=== PATIENT | female | born 1970 | race Caucasian/White ===

== ENCOUNTER → 2017-11-28 | Day surgery (SDC) | payer OTHER ==
--- NOTE | 2017-11-24 19:39 | GHP ---
[f rep st] PREOP HISTORY AND PHYSICAL DATE OF ADMISSION: 11/28/2017 PLANNED PROCEDURE: Hysteroscopy with morcellation of endometrium and an endometrial ablation. INDICATIONS: Patient is a 47-year-old 2, para 2-0-0-2, whose periods have been getting progr essively worse over the last year. The patient had a Mirena placed 4-1/2 years ago. She had sporadi c cycles for the majority of the time with the Mirena, but over the last 6 months, her bleeding has b ecome monthly and longer lasting 6-12 days. She was seen for her annual exam at the end of August, and had her Mirena IUD removed, and we discussed management options including expectant management wi th the removal of the IUD which patient opted for. Patient states after her IUD was removed, she is having 2 periods a month, lasting 9 days that are very cramping. The patient previously did okay on control pills but would have to avoid being on hormones in the future. A pelvic ultrasound was obtained which showed a uterus measuring 9 x 5 x 6 cm with an endometrial thickness of 0.33 cm. How ever, there is a posterior intramural fibroid measuring 4 x 5 cm, which does not appear to impinge on the endometrial cavity, but we cannot rule out impingement of the endometrial cavity. We had a long discussion about management options of replacing an IUD, proceeding with control pills, hyster oscopy, and morcellation of endometrial tissue plus or minus endometrial ablation versus hysterectomy . Patient is not ready for hysterectomy. We extensively reviewed the images from the ultrasound and showed that the fibroid appears to be through most of the wall of the uterus. We discussed that if it is distorting the uterine cavity we might not be able to perform the endometrial ablation or it mi ght not be successful and removing the fibroid hysteroscopically would result in perforating the uter us, and would not be a great idea. Patient would like to attempt to proceed with a hysteroscopy, mor cellation of endometrial tissue, and an endometrial ablation, and is aware that if it is not successf ul or we are not able to safely perform the procedure, that we will not do the ablation and will have to talk about other options. Risks and benefits have been extensively reviewed with the patient, an d the patient has been properly consented. MEDICAL HISTORY: Menorrhagia. History of cervical dysplasia. MEDICATIONS: None. SURGICAL HISTORY: section, breast biopsy, some teeth extractions. ALLERGIES: Penicillin. SOCIAL HISTORY: The patient is dating. 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 She denies tobacco or drug use. She does drink 7 alcoholic beverages a week. FAMILY MEDICAL HISTORY: Noncontributory. 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 Periods currently have been every 15 days lasting 9 days of bleedi ng with cramping. She is a 2, para 2-0-0-2. In 1999, she had a spontaneous vaginal delivery of a 6 pounds 3 ounces at 36 weeks' gestation. In 2001 she had a primary low transverse cesa rean section for arrest of descent of an 8 pounds 13 ounces male infant. The patient does have a his tory of abnormal Pap smears. She had a colposcopy and not sure what was done after that. Her repeat Pap smear in 2015 and HPV testing were both negative. Pelvic ultrasound was described above. She d oes have a history of HPV in the past. REVIEW OF SYSTEMS: 10-point review of systems is negative with exception of the above-mentioned pert inent positives. PHYSICAL EXAM: VITAL SIGNS: Patient's blood pressure is 98/60. Her weight is 143. GENERAL APPEARA NCE: Alert and oriented x3. PSYCH: Appropriate affect. HEART: Rate is regularly irregular. LUNG S: Clear to auscultation bilaterally. ABDOMEN: Soft, nondistended, nontender. No organomegaly is noted. EXTREMITIES: No calf tenderness or edema. MUSCULOSKELETAL: Grossly intact. NEUROMUSCULAR: Grossly intact. PELVIC: Mobile, slightly enlarged uterus with no adnexal masses. ASSESSMENT AND PLAN: 1. 47-year-old 2, para 2-0-0-2 with dysfunctional uterine bleeding. She will undergo a hyst eroscopy with morcellation of endometrial tissue and attempted endometrial ablation. She declined an endometrial biopsy in the office due to the potential for discomfort. Patient is aware that we woul d not be able to perform the endometrial ablation and increased risk because of the fibroid, but wish es to proceed so if she needs a hysterectomy she feels like she has attempted everything. Risks and benefits have been reviewed extensively with the patient. The patient has been properly consented. /[id number]/MODL
[~2017-11-28] MED LIST: ACETAMINOPHEN 500 MG TAB ONE; ACETAMINOPHEN 500 MG TAB PO PRN; ALBUTEROL 3 ML DEYVIAL IH PRN; DEXAMETHASONE 4 MG/ML VIAL ONE; DOXYCYCLINE INJ 100 MG in NS 250 ML IV ONE; HYDROmorphONE/DILAUDID 1 MG/ML INJ IVP PRN; LIDOCAINE 2% 5 ML SDV ONE; LR 1,000 ML IV ONE; LR 500 ML IV PRN; MIDAZOLAM 2 MG/2 ML VIAL IVP ONE; MIDAZOLAM 2 MG/2 ML VIAL ONE; NALOXONE HCL 0.4 MG/ML INJ IVP PRN; ONDANSETRON 4 MG/2 ML VIAL IVP PRN; OXYCODONE/APAP 5/325 TAB PO PRN; PROMETHAZINE HCL 25 MG/ML INJ IVP PRN; PROPOFOL 200 MG/20 ML VIAL ONE; SILVER NITRATE APPLICATOR 1 APPL TP ONE; fentaNYL 100 MCG/2 ML INJ IVP PRN; fentaNYL 100 MCG/2 ML INJ ONE
[2017-11-28 11:34] VITALS: PULSE 60
--- NOTE | 2017-11-28 11:54 | PDHPUP ---
History & Physical Update H&P update statement: This history and physical update is based on an assessment of the patient which was completed after admission or registration (within 24 hours), but prior to the surgery/procedure. H&P update: H&P reviewed & patient examined, no change in patient's condition since H&P completed
--- NOTE | 2017-11-28 12:32 | PDANEPAE ---
ANE History of Present Illness dysfunctional uterine bleeding ANE Past Medical History - Cardiovascular History Hx Hypertension: No Hx Arrhythmias: No Hx Chest Pain: No Hx Coronary Artery / Peripheral Vascular Disease: No Hx CHF / Valvular Disease: No Hx Palpitations: No - Pulmonary History Hx COPD: No Hx Asthma/Reactive Airway Disease: No Hx Recent Upper Respiratory Infection: No Hx Oxygen in Use at Home: No Hx Sleep Apnea: No Sleep Apnea Screening Result - Last Documented: Negative - Neurologic History Hx Cerebrovascular Accident: No Hx Seizures: No Hx Dementia: No - Endocrine History Hx Diabetes: No Hypothyroid: No Hyperthyroid: No Obesity: no - Renal History Hx Renal Disorders: No - Liver History Hx Hepatic Disorders: No - Neurological & Psychiatric Hx Hx Neurological and Psychiatric Disorders: No - Cancer History Hx Cancer: No - Congenital Disorder History Hx Congenital Disorders: Yes Congenital History Comment: CHRONIC HEREDITARY JAUNDICE - NOT IN YEARS - GI History Hx Gastrointestinal Disorders: No - Other Health History Other Health History: NEG - Chronic Pain History Chronic Pain: No - Surgical History Prior Surgeries: C SECTION ANE Review of Systems Review of systems is: negative Review of Systems: - Exercise capacity METS (RN): 4 METS ANE Patient History - Allergies Allergies/Adverse Reactions: Penicillins Allergy (Intermediate, Verified 11/13/17 15:53) SKIN RASH - Home Medications Home medications: home medication list seen and reviewed Home Medications: Multivitamin 11/13/17 [Last Taken 2 Weeks Ago ~11/14/17] - NPO status NPO Since - Liquids (Date): 11/28/17 NPO Since - Liquids (Time): 08:00 NPO Since - Solids (Date): 11/28/17 NPO Since - Solids (Time): 05:30 - Anes Hx Anes Hx: no prior problems - Smoking Hx Smoking Status: Never smoked - Family Anes Hx Family Hx Anesthesia Complications: NEG ANE Labs/Vital Signs - Vital Signs Blood Pressure: 124/77 Heart Rate: 60 Respiratory Rate: 16 O2 Sat (%): 96 Height: 165.1 cm Weight: 62.596 kg ANE Physical Exam - Airway Neck exam: FROM Mallampati Score: Class 2 Mouth exam: normal dental/mouth exam - Pulmonary Pulmonary: no respiratory distress - Cardiovascular Cardiovascular: regular rate and rhythym - ASA Status ASA Status: II ANE Anesthesia Plan Anesthesia Plan: GA w LMA Urgent/Emergent Case: Esperanza bright completed preop but documented later for safe timely pt care
--- NOTE | 2017-11-28 12:49 | POSTANESTH ---
Post Anesthetic Evaluation Cardiovascular Status: Normal, Stable Respiratory Status: Normal, Stable Level of Consciousness/Mental Status: Can Participate in Eval Pain Control: Adequate, Prn Tx Ordered Nausea/Vomiting Control: Adequate, Prn Tx Ordered Complications Possibly Related to Anesthesia: None Noted
[2017-11-28 13:08] VITALS: RESP 15
[2017-11-28 13:17] VITALS: O2SAT 98
[2017-11-28 14:47] VITALS: BP 124/79
[2017-11-28 14:48] VITALS: TEMP 97.7
--- NOTE | 2017-11-28 21:56 | GOP ---
[f rep st] OPERATIVE REPORT DATE OF OPERATION: 11/28/2017 SURGEON: Joanne Kiser DO ANESTHESIA: General with LMA. PREOPERATIVE DIAGNOSIS: Dysfunctional uterine bleeding and menorrhagia. POSTOPERATIVE DIAGNOSIS: Dysfunctional uterine bleeding and menorrhagia. PROCEDURE PERFORMED: Hysteroscopy with dilation and curettage and endometrial ablation. FINDINGS: 1. Exam under anesthesia: Mobile midposition uterus with no adnexal masses. 2. Hysteroscopic findings: Unremarkable. Endometrial cavity: No obvious polyps or fibroids. Bila teral tubal ostia visualized. Post ablation hysteroscopy diffusely ablated endometrial cavity. SPECIMENS: Endometrial curettings. ESTIMATED BLOOD LOSS: 10 cc. INDICATIONS: The patient is a 47-year-old who presented with complaints of heavier prolonged periods . She had a Mirena IUD in place, which was supposed to be swapped out. It was removed and her perio ds began happening twice a month and lasting for 9 days. Management options were reviewed with the p abbey. The patient had an ultrasound which showed a large intramural fibroid, but it did not appear to be impinging on the endometrial cavity. We discussed the possibility that once we got inside wit h the hysteroscopy, we might find that it was impinging on the cavity and not be able to perform the procedure. The patient was agreeable to try. Risks and benefits were reviewed with the patient and patient was properly consented. DESCRIPTION OF PROCEDURE: Patient was taken to the operating room with intravenous fluids in place. She was given 100 mg of doxycycline intravenously and placed on the operating room table. She was t hen repositioned into the dorsal supine position where general anesthesia was obtained. She was then repositioned into the dorsal lithotomy position with the Yellofin stirrups and prepped and draped in the normal sterile fashion. Exam under anesthesia revealed a mobile, midposition uterus with no adn exal masses. A speculum was then placed in the patient's vagina and Allis clamp was used to grasp th e anterior lip of the cervix. The cervix was then carefully dilated to allow for the introduction of an operative hysteroscope. The hysteroscope was then introduced with fluid medium running. A thin endometrial cavity was noted. Bilateral tubal ostia were visualized. A sharp metal curette was then introduced, and a circumferential curettage was performed. The uterus sounded to 7.5 cm. The cervi ephraim length was 3 cm. The Francia was set to a cavity length of 7 cm and inserted without difficulty. The cavity assessment was performed and an endometrial ablation was performed without difficulty. The Francia was then withdrawn. Hysteroscope was then reintroduced and a diffusely ablated endometri al cavity was noted. Instruments were then removed from the patient's vagina. No bleeding was noted . The patient was returned to the dorsal supine position where she was easily awoken from anesthesia . Sponge count was correct. The patient was transferred to the recovery room in stable condition. /[id number]/MODL
== END | disposition home or self-care (01) ==
LOC: FSGY 10:43
PROVIDERS: ATTEND Obstetrics & Gynecology
PROC: 0UDB8ZX Extraction of Endometrium, Via Natural or Artificial Opening Endoscopic, Diagnostic (ICD-10-PCS; principal; 2017-11-28 12:00)
PROC: 0U5B8ZZ Destruction of Endometrium, Via Natural or Artificial Opening Endoscopic (ICD-10-PCS; principal; 2017-11-28 12:00)
DX: N84.0 Polyp of corpus uteri (principal); N93.8 Other specified abnormal uterine and vaginal bleeding; Z87.410 Personal history of cervical dysplasia
CPT/HCPCS: J1100; J2250; J2704; J3010